=== PATIENT | female | born 1985 | race Caucasian/White ===

== ENCOUNTER 2021-11-10 12:49 | Emergency (ER) | payer OTHER ==
[2021-11-10 13:29] LABS: Bilirubin Neg (Negative); Blood, Urine 10 (Negative); Clarity Cloudy (Clear); Glucose, Urine (Dipstick) Normal (Negative); Ketone, Urine 5 mg/dL (Negative); Leukocyte 25 (Negative); Nitrite Negative (Negative); Protein, Urine (Dipstick) 30 mg/dl (Neg-Trace)
[2021-11-10 13:38] LABS: Bacteria/HPF 1+ HPF (None Seen); Mucous/LPF 2+ LPF (<2+); RBC/HPF 0-3 HPF (0-3)
[2021-11-11 01:09] LABS: SARS-CoV-2 PCR by NAA DETECTED (NotDetected)
== END 2021-11-10 15:46 | disposition home or self-care (01) ==
LOC: CSHERS 12:49
DX: U07.1 COVID-19 (principal); N30.00 Acute cystitis without hematuria
CPT/HCPCS: 81003; 81015; 87804; 99283; U0003; U0005

== ENCOUNTER 2022-12-13 23:27 | Emergency (ER) | payer OTHER ==
[2022-12-14] MEDS ORDERED: Ondansetron PF 4 MG/2 ML Vial ONE (00:47)
[2022-12-14] MEDS ORDERED: Ketorolac Tromethamine 30 MG/ML VIAL ONE (00:47)
[2022-12-14 00:52] LABS: Bilirubin Neg (Negative); Blood, Urine Negative (Negative); Clarity Cloudy (Clear); Glucose, Urine (Dipstick) Normal (Negative); Ketone, Urine Negative (Negative); Leukocyte 100 (Negative); Nitrite Negative (Negative); Protein, Urine (Dipstick) Negative (Neg-Trace); Urobilinogen Normal mg/dL (Less than 2); pH, Urine 6.5 (5.0-9.0)
[2022-12-14 00:54] LABS: #Basophils 0.1 10x3/uL (0.0-0.2); #Eosinphils 0.2 10x3/uL (0.0-0.5); #Monocytes 0.7 10x3/uL (0.0-1.1); #Neutrophils 4.5 10x3/uL (1.5-8.4); %Basophils 0.7 % (0.0-2.0); %Eosinophils 2.5 % (0.0-6.0); %Monocytes 8.2 % (0.0-10.0); %Neutrophils 51.5 % (40.0-75.0); Hemoglobin 12.7 g/dL (12.0-15.5); Mean Corpuscular Hemoglobin 31.9 pg (27.0-33.0); Mean Platelet Volume 9.5 fl (7.4-10.4); Platelet Count 403 10x3/uL (150-450); RBC Distribution Width 12.2 % (11.5-14.5); Red Blood Cell (RBC) Count 3.98 10x6/uL (3.90-5.03); White Blood Cell (WBC) Count 8.7 10x3/uL (3.5-10.5)
[2022-12-14 01:05] LABS: Bacteria/HPF 2+ HPF (None Seen); RBC/HPF 0-3 HPF (0-3); WBC/HPF 0-3 HPF (0-3)
[2022-12-14 01:06] LABS: BHCG - Serum Negative (NEGATIVE); Pregs Control Background? CLEAR/WHITE (CLR/WHITE); Pregs Control Bar Appear? YES (CONTROL BAR)
[2022-12-14 01:08] LABS: Albumin 4.4 g/dL (3.5-5.0); Anion Gap 13 mmol/L (10-20); BUN (Urea Nitrogen) 13 mg/dL (7.0-18.7); Bilirubin, Total 0.3 mg/dL (0.2-1.2); Calc. Creatinine Clearance 0 mL/min (70-130); Calcium 9.4 mg/dL (7.8-10.44); Carbon Dioxide 25 mmol/L (22-29); Chloride 106 mmol/L (98-107); Estimated GFR 109; Glucose 106 mg/dL (70-105); Potassium 3.8 mmol/L (3.5-5.1); Protein, Total 7.6 g/dL (6.0-8.3); Sodium 140 mmol/L (136-145)
[2022-12-14 01:09] LABS: ALT (SGPT) 12 U/L (8-55); AST (SGOT) 12 U/L (5-34); Alkaline Phosphatase 55 U/L (40-110); Globulin 3.2 g/dL (2.4-3.5)
== END 2022-12-14 02:39 | disposition home or self-care (01) ==
LOC: CSHERS 23:27
DX: R42 Dizziness and giddiness (principal); N30.00 Acute cystitis without hematuria; F17.200 Nicotine dependence, unspecified, uncomplicated
CPT/HCPCS: 80053; 81003; 81015; 84703; 85025; 96361; 96374; 96375; J1885; J2405

== ENCOUNTER 2023-07-02 14:03 | Emergency (ER) | payer OTHER ==
[2023-07-02] MEDS ORDERED: predniSONE 20 MG TAB ONE (16:44)
[2023-07-02] MEDS ORDERED: Lidocaine 4% Patch TD SCH (17:00)
[2023-07-03] MEDS ORDERED: Transdermal Patch Removal TOP SCH (05:00)
== END 2023-07-02 17:49 | disposition home or self-care (01) ==
LOC: CSHERS 14:03
DX: O9A.212 Injury, poisoning and certain other consequences of external causes complicating pregnancy, second trimester (principal); S29.012A Strain of muscle and tendon of back wall of thorax, initial encounter; W01.0XXA Fall on same level from slipping, tripping and stumbling without subsequent striking against object, initial encounter; Z3A.18 18 weeks gestation of pregnancy
CPT/HCPCS: 99283; J7512

== ENCOUNTER 2023-10-27 11:29 | Day surgery (SDC) | payer OTHER ==
[2023-10-27] MEDS ORDERED: Acetaminophen 500 MG TAB PO SCH (13:15)
== END 2023-10-27 17:44 | disposition home or self-care (01) ==
LOC: CSHLD/OP 11:29
PROVIDERS: ATTEND Student in an Organized Health Care Education/Training Program
DX: O99.891 Other specified diseases and conditions complicating pregnancy (principal); O09.513 Supervision of elderly primigravida, third trimester; O24.419 Gestational diabetes mellitus in pregnancy, unspecified control; R10.9 Unspecified abdominal pain; E66.9 Obesity, unspecified; Z79.4 Long term (current) use of insulin; Z79.82 Long term (current) use of aspirin; Z79.84 Long term (current) use of oral hypoglycemic drugs; Z79.899 Other long term (current) drug therapy; Z3A.35 35 weeks gestation of pregnancy
CPT/HCPCS: 99283

== ENCOUNTER 2023-11-15 14:50 | Day surgery (SDC) | payer OTHER ==
[2023-11-15] MEDS ORDERED: hydrALAZINE 20 MG/ML VIAL SLOW IVP PRN (15:17)
[2023-11-15 15:35] VITALS: BMI 36.8
== END 2023-11-15 17:08 | disposition home or self-care (01) ==
LOC: CSHLD/OP 14:50
PROVIDERS: ATTEND Family Medicine
DX: Z36.89 Encounter for other specified antenatal screening (principal); O23.593 Infection of other part of genital tract in pregnancy, third trimester; O09.523 Supervision of elderly multigravida, third trimester; O28.8 Other abnormal findings on antenatal screening of mother; O99.213 Obesity complicating pregnancy, third trimester; O24.419 Gestational diabetes mellitus in pregnancy, unspecified control; O26.893 Other specified pregnancy related conditions, third trimester; Z98.890 Other specified postprocedural states; Z79.899 Other long term (current) drug therapy; Z3A.37 37 weeks gestation of pregnancy
CPT/HCPCS: 59025; 99282

== ENCOUNTER 2023-11-20 20:10 | Inpatient (IN) | payer OTHER ==
[2023-11-20 21:13] VITALS: BMI 35.3
[2023-11-20] MEDS ORDERED: Promethazine HCl 25 MG/ML VIAL IM PRN ×2 (21:14→22:40)
[2023-11-20] MEDS ORDERED: Ondansetron PF 4 MG/2 ML Vial IVP PRN ×2 (21:14→22:40)
[2023-11-20] MEDS ORDERED: hydrALAZINE 20 MG/ML VIAL SLOW IVP PRN (21:14)
[2023-11-20] MEDS ORDERED: Lidocaine 1% (PF) 30 ML VIAL SC PRN (21:14)
[2023-11-20] MEDS ORDERED: Docusate 100 MG CAP PO PRN (21:31)
[2023-11-20] MEDS ORDERED: Tranexamic Acid 1,000 MG/10 ML VIAL IVP PRN (21:31)
[2023-11-20] MEDS ORDERED: Diphenoxylate HCl/Atropine Tablet PO PRN (21:31)
[2023-11-20] MEDS ORDERED: Carboprost 250 MCG/ML AMP IM PRN (21:31)
[2023-11-20] MEDS ORDERED: Methylergonovine 0.2 MG/ML VIAL IM PRN (21:31)
[2023-11-20] MEDS ORDERED: fentaNYL 50 mcg/mL 1 mL Vial SLOW IVP PRN (21:31)
[2023-11-20] MEDS ORDERED: Misoprostol 200 MCG TAB PR PRN (21:31)
[2023-11-20 21:32] LABS: Glucose 76 mg/dL (70-105)
[2023-11-20] MEDS ORDERED: fentaNYL/Ropivacaine Epidural 100 ML ONE (21:57)
[2023-11-20] MEDS ORDERED: Penicillin G Potassium 5 MILL.UNITS in Sodium Chloride 0.9% 100 ML IVPB SCH (22:00)
[2023-11-20] MEDS ORDERED: Oxytocin 30 units/NS 500 ML 500 ML IV SCH (22:00)
[2023-11-20] MEDS ORDERED: Lactated Ringer's 1,000 ML IV SCH (22:00)
[2023-11-20] MEDS ORDERED: Misoprostol 100 MCG TAB PO SCH (22:00)
[2023-11-20 22:22] LABS: Hematocrit 33.5 % (34.9-44.5); Hemoglobin 11.9 g/dL (12.0-15.5); Mean Corpuscular HGB CONC 35.5 g/dL (32.0-36.0); Mean Corpuscular Hemoglobin 31.5 pg (27.0-33.0); Mean Corpuscular Volume 88.6 fl (81.6-98.3); Mean Platelet Volume 10.1 fl (7.4-10.4); Platelet Count 378 10x3/uL (150-450); RBC Distribution Width 12.4 % (11.5-14.5); Red Blood Cell (RBC) Count 3.78 10x6/uL (3.90-5.03); White Blood Cell (WBC) Count 12.3 10x3/uL (3.5-10.5)
[2023-11-20] MEDS ORDERED: Lactated Ringer's 500 ML IV PRN (22:40)
[2023-11-20] MEDS ORDERED: Moisturizing Cream (Eucerin) 113 GM JAR TOP PRN (22:40)
[2023-11-20] MEDS ORDERED: Naloxone HCl 0.4 mg/ml Vial IVP PRN ×2 (22:40)
[2023-11-20] MEDS ORDERED: Acetaminophen 325 MG TAB PO PRN (22:40)
[2023-11-20] MEDS ORDERED: ePHEDrine Sulfate 50 MG/10 ML VIAL SLOW IVP PRN (22:40)
[2023-11-20] MEDS ORDERED: diphenhydrAMINE 50 MG/ML VIAL IVP PRN (22:40)
[2023-11-20] MEDS ORDERED: fentaNYL 2 mcg/Ropivacaine 0.2% Epidural 100 ML CADD EPIDURAL SCH (22:45)
[2023-11-20] MEDS ORDERED: Communication Order-Pharmacy FS SCH (22:45)
[2023-11-20 23:08] LABS: HBSAg Index 0.21 S/CO (0-0.99); Hep B Surf Ag - L&D Non-Reactive S/CO (NonReactive)
[2023-11-20 23:09] LABS: Syphilis Antibody Nonreactive (Nonreactive); Syphilis Antibody Index 0.03 S/CO (<1.00 Non-Reactive)
[2023-11-21] MEDS: Penicillin G 2.5 MILL.units 2.5 MILL.UNITS in Premix 1 BAG IVPB SCH ×2 (02:29→10:41)
[2023-11-21] MEDS: Oxytocin 30 units/NS 500 ML 500 ML IV SCH ×2 (04:18→05:26)
[2023-11-21] MEDS ORDERED: Bupivacaine 0.25% HCL 30 ML VIAL ONE (06:00)
[2023-11-21] MEDS ORDERED: ePHEDrine Sulfate 50 MG/10 ML VIAL ONE (06:00)
[2023-11-21] MEDS ORDERED: Ibuprofen 800 MG TAB PO SCH (07:00)
[2023-11-21] MEDS ORDERED: Measles/Mumps/Rubella 10 MCG/0.5 ML VIAL SC ONE (07:24)
[2023-11-21] MEDS ORDERED: hydrALAZINE 20 MG/ML VIAL SLOW IVP PRN (07:24)
[2023-11-21] MEDS ORDERED: Bisacodyl 10 MG SUPP PR PRN (07:24)
[2023-11-21] MEDS ORDERED: Boostrix 0.5 ML (Tdap) VIAL (>/=7 yrs of age) IM ONE (07:24)
[2023-11-21] MEDS ORDERED: Milk Of Magnesia 30 ML UDCUP PO PRN (07:24)
[2023-11-21] MEDS: Prenatal Vitamin 1 TAB PO SCH (08:22)
[2023-11-21] MEDS: Docusate 100 MG CAP PO SCH ×2 (08:22→20:36)
[2023-11-21] MEDS ORDERED: Ferrous Sulfate 325 MG TAB PO SCH (09:00)
[2023-11-21] MEDS: Acetaminophen 500 MG TAB PO SCH ×2 (10:02→17:41)
[2023-11-21] MEDS: Ibuprofen 800 MG TAB PO SCH ×2 (13:19→20:36)
[2023-11-21] MEDS ORDERED: Simethicone Chewable 80 MG TAB PO PRN (19:53)
[2023-11-21] MEDS ORDERED: Polyethylene Glycol 3350 17 GM Packet PO SCH (20:15)
[2023-11-22] MEDS: Ibuprofen 800 MG TAB PO SCH (05:32)
[2023-11-22 08:16] VITALS: BP 97/54; TEMP 98.3
[2023-11-22] MEDS: Docusate 100 MG CAP PO SCH (08:32)
[2023-11-22] MEDS: Prenatal Vitamin 1 TAB PO SCH (08:32)
[2023-11-22] MEDS: Acetaminophen 500 MG TAB PO SCH (08:33)
[2023-11-22] MEDS ORDERED: Measles/Mumps/Rubella 10 MCG/0.5 ML VIAL SC ONE (11:00)
== END 2023-11-22 13:45 | disposition home or self-care (01) | DRG 807 ==
LOC: CSHLD/OP 20:10 → CSHLD 20:49 → CSHPP 11-21 07:31
PROVIDERS: ADMIT Student in an Organized Health Care Education/Training Program; ATTEND Student in an Organized Health Care Education/Training Program
PROC: 10E0XZZ Delivery of Products of Conception, External Approach (ICD-10-PCS; principal; 2023-11-21)
DX: O42.02 Full-term premature rupture of membranes, onset of labor within 24 hours of rupture (principal); Z37.0 Single live birth; E66.9 Obesity, unspecified; Z3A.38 38 weeks gestation of pregnancy; Z79.84 Long term (current) use of oral hypoglycemic drugs; Z79.4 Long term (current) use of insulin; O99.214 Obesity complicating childbirth; O24.424 Gestational diabetes mellitus in childbirth, insulin controlled; O99.824 Streptococcus B carrier state complicating childbirth; O36.63X0 Maternal care for excessive fetal growth, third trimester, not applicable or unspecified; O69.81X0 Labor and delivery complicated by cord around neck, without compression, not applicable or unspecified
CPT/HCPCS: 36416; 51702; 76815; 82947; 85027; 86780; 86850; 86900; 86901; 87340; 90707; 99285; J2405; J2540; J2590; J3490; S0020

== ENCOUNTER 2024-04-18 23:42 | Emergency (ER) | payer OTHER ==
[2024-04-18] MEDS ORDERED: Ibuprofen 200 MG TAB ONE (23:57)
== END 2024-04-19 01:27 | disposition home or self-care (01) ==
LOC: CSHERS 23:42
DX: S60.222A Contusion of left hand, initial encounter (principal); W22.03XA Walked into furniture, initial encounter; Y93.89 Activity, other specified; Y92.69 Other specified industrial and construction area as the place of occurrence of the external cause; Z55.6 Problems related to health literacy

== ENCOUNTER 2024-06-27 23:12 | Emergency (ER) | payer OTHER ==
[2024-06-28] MEDS ORDERED: Ketorolac Tromethamine 30 MG (1 mL) VIAL ONE (00:01)
== END 2024-06-27 23:59 | disposition home or self-care (01) ==
LOC: CSHERS 23:12
DX: S82.65XA Nondisplaced fracture of lateral malleolus of left fibula, initial encounter for closed fracture (principal); W17.2XXA Fall into hole, initial encounter
CPT/HCPCS: 96372; J1885